=== PATIENT | male | born 1965 | race Caucasian/White ===

== ENCOUNTER → 2017-06-18 | Outpatient (CLI) | payer SELFPAY ==
--- NOTE | 2017-06-18 15:22 | RAD ---
INDICATION: RIGHT 2ND DIGIT, SMASHED FINGER X 1 DAY AGO COMPARISON: None. IMPRESSION: Right second digit of hand: 3 views obtained. There is a mildly displaced fracture of the distal phalanx of the second digit.
== END | disposition home or self-care (01) ==
LOC: DXRADRC 14:20
PROVIDERS: ATTEND Physician Assistant
DX: S62.603D Fracture of unspecified phalanx of left middle finger, subsequent encounter for fracture with routine healing (principal); X58.XXXD Exposure to other specified factors, subsequent encounter
CPT/HCPCS: 73140

== ENCOUNTER → 2018-08-02 | Outpatient (CLI) | payer OTHER ==
--- NOTE | 2018-08-02 18:10 | RAD ---
ANKLE LEFT 3V, FOOT LEFT 3V History: Severe bruising and swelling into the ankle, fall 3 days ago, foot pain, ankle sprain Comparison: None. Findings: Left ankle: 3 views of the left ankle are submitted. There is a comminuted slightly displaced spiral fracture of the distal fibula mostly above the syndesmosis although inferior aspect of the fracture plane extending near the region of syndesmosis which is not widened. There is less than one quarter shaft width of displacement of the more lateral fragment. Left foot: 3 views of the left foot are submitted. No acute fracture is identified of the left foot. There is soft tissue swelling posteriorly. Impression: 1. There is a comminuted spiral fracture of the distal fibula, fracture plane entering into the region of the nonwidened syndesmosis. Electronically signed by: Perfecto Adam MD (08/02/2018 6:07 PM) [id number]
== END | disposition home or self-care (01) ==
LOC: RAD 16:35 → EDBD 16:35
PROVIDERS: ATTEND Neuromusculoskeletal Medicine & OMM
DX: S82.442A Displaced spiral fracture of shaft of left fibula, initial encounter for closed fracture (principal); X58.XXXA Exposure to other specified factors, initial encounter; Y93.89 Activity, other specified; Y92.89 Other specified places as the place of occurrence of the external cause; Y99.8 Other external cause status
CPT/HCPCS: 73610; 73630